=== PATIENT | female | born 1970 | race Hispanic/Latino ===

== ENCOUNTER 2018-05-21 01:17 | Emergency (ER) | payer SELFPAY ==
[~2018-05-21] VITALS: Ht 157.5 cm; Wt 66.0 kg
[2018-05-21] MEDS ORDERED: TRAMADOL HYDROC50 MG PO (02:10)
[2018-05-21 02:17] VITALS: BP 134/86
== END 2018-05-21 02:23 | disposition home or self-care (01) | DRG 951 ==
LOC: EDBD 01:17 → ED 01:17
DX: Z76.0 Encounter for issue of repeat prescription (principal); M79.10 Myalgia, unspecified site; G89.29 Other chronic pain

== ENCOUNTER 2018-08-17 17:40 | Emergency (ER) | payer SELFPAY ==
[~2018-08-17] VITALS: Ht 157.5 cm; Wt 63.6 kg
[~2018-08-17 17:40] MED LIST: TRAMADOL HYDROC50 MG PO
[2018-08-17] MEDS ORDERED: TRAMADOL HCL50 MG PO (18:23)
[2018-08-17 18:35] VITALS: BP 131/82
== END 2018-08-17 18:35 | disposition home or self-care (01) | DRG 951 ==
LOC: ED 17:40
DX: Z76.0 Encounter for issue of repeat prescription (principal); M19.90 Unspecified osteoarthritis, unspecified site

== ENCOUNTER 2020-09-04 12:03 | Emergency (ER) | payer SELFPAY ==
[~2020-09-04] VITALS: Ht 157.5 cm; Wt 80.0 kg
[~2020-09-04 12:03] MED LIST changes: +TRAMADOL HCL50 MG PO
[2020-09-04 12:59] LABS: URINE BILIRUBIN - DIPSTICK NEGATIVE (NEGATIVE); URINE BLOOD DIPSTICK SMALL (NEGATIVE); URINE COLOR YELLOW; URINE GLUCOSE - DIPSTICK NEGATIVE (NEGATIVE); URINE KETONE NEGATIVE (NEGATIVE); URINE LEUK ESTERASE NEGATIVE (NEGATIVE); URINE NITRITE - DIPSTICK NEGATIVE (Negative); URINE PROTEIN - DIPSTICK 100 mg/dL (NEG-TRACE); URINE SPECIFIC GRAVITY >=1.030
[2020-09-04 13:08] LABS: URINE RBC 0-2 RBC/hpf (0-5); URINE SQUAMOUS EPITHELIAL CELL FEW EPI/hpf (0-FEW)
[2020-09-04] MEDS ORDERED: ZPAK PO (15:39)
[2020-09-04] MEDS ORDERED: TESSALON PERLE100 MG PO (15:39)
[2020-09-04] MEDS ORDERED: VENTOLIN HFA IN (15:39)
[2020-09-04 15:47] VITALS: BP 144/72
--- NOTE | 2020-09-04 15:55 | NUR ---
Consult received to screen patient for criteria for monoclonal antibody treatment. Pt does not meet criteria for use as she is 49yo, BMI <35, and no hx of CKD, diabetes, or immunosuppressive disease.
== END 2020-09-04 16:09 | disposition home or self-care (01) | DRG 179 ==
LOC: ED 12:03
DX: U07.1 COVID-19 (principal); J40 Bronchitis, not specified as acute or chronic; M19.90 Unspecified osteoarthritis, unspecified site

== ENCOUNTER 2022-05-29 00:38 | Emergency (ER) | payer SELFPAY ==
[~2022-05-29] VITALS: Ht 157.5 cm; Wt 76.0 kg
[~2022-05-29 00:38] MED LIST changes: +TESSALON PERLE100 MG PO; +VENTOLIN HFA IN; +ZPAK PO
[2022-05-29] MEDS ORDERED: ULTRAM50 M1 PO (01:56)
[2022-05-29 01:58] VITALS: BP 123/67
== END 2022-05-29 02:02 | disposition home or self-care (01) | DRG 556 ==
LOC: ED 00:38
DX: M79.10 Myalgia, unspecified site (principal)

== ENCOUNTER 2022-10-21 00:52 | Emergency (ER) | payer SELFPAY ==
[~2022-10-21] VITALS: Ht 157.5 cm; Wt 79.0 kg
[~2022-10-21 00:52] MED LIST changes: +ULTRAM50 M1 PO
[2022-10-21 01:36] VITALS: BP 125/75
[2022-10-21] MEDS ORDERED: ULTRAM50 MG PO (01:57)
[2022-10-21 02:00] VITALS: BP 127/80
[2022-10-21 02:04] VITALS: BP 125/75
[2022-10-21] MEDS ORDERED: TRAMADOL HCL50 MG PO (02:18)
[2022-10-21] MEDS ORDERED: METFORMIN HCL500 M2 PO (02:18)
[2022-10-21] MEDS ORDERED: LISINOPRIL2.5 MG PO (02:19)
[2022-10-21] MEDS ORDERED: ATORVASTATIN CA10 MG PO (02:19)
== END 2022-10-21 02:15 | disposition home or self-care (01) | DRG 556 ==
LOC: ED 00:52
DX: M79.10 Myalgia, unspecified site (principal); M19.90 Unspecified osteoarthritis, unspecified site